=== PATIENT | male | born 1990 | race African-American/Black ===

== ENCOUNTER 2024-07-23 17:02 | Emergency (ER) | payer MEDICAID ==
[2024-07-23 17:33] LABS: APPEARANCE,URINE SLT CLOUDY; BILIRUBIN,URINE NEGATIVE (NEGATIVE); COLOR,URINE YELLOW; GLUCOSE,URINE NEGATIVE (NEGATIVE); KETONES,URINE NEGATIVE (NEGATIVE); LEUKOCYTE ESTERASE,URINE MODERATE (NEGATIVE); NITRITE,URINE NEGATIVE (NEGATIVE); OCCULT BLOOD,URINE MODERATE (NEGATIVE); PROTEIN,URINE TRACE mg/dL (NEGATIVE); UROBILINOGEN,URINE 0.2 EU/dL (<2.0)
[2024-07-23 17:46] LABS: BACTERIA,URINE FEW (NEGATIVE); EPITHELIAL CELLS,URINE RARE (NONE-FEW); WBC,URINE TOO NUMEROUS TO CT (0-5/HPF)
[2024-07-23] MEDS: cefTRIAXone 1 GM Vial IM ONE (18:47)
[2024-07-23] MEDS: Lidocaine 1% PF 2 ML SDV INJECT ONE (18:47)
[2024-07-23 19:01] LABS: C. TRACHOMATIS BY PCR NOT DETECTED; N. GONORRHOEAE BY PCR DETECTED
== END 2024-07-23 19:53 | disposition home or self-care (01) ==
LOC: MW.ED 17:02
DX: N39.0 Urinary tract infection, site not specified (principal); A54.9 Gonococcal infection, unspecified; Z75.3 Unavailability and inaccessibility of health-care facilities
CPT/HCPCS: 81001; 87086; 87491; 87591; 96372; 99283; J0696; J2003